=== PATIENT | male | born 1985 | race Two or more races ===

== ENCOUNTER 2025-03-21 09:00 | Day surgery (SDC) | payer BC ==
[~2025-03-21] VITALS: Ht 180.3 cm; Wt 74.8 kg
[~2025-03-21 09:00] MED LIST: NO HOME MEDS; ringers solution, lacted 1,000 ML IV SCH; simethicone 40mg/0.6ml oral drops 15ml PO ONE
[2025-03-21 09:23] VITALS: RESP 15; O2SAT 97
[2025-03-21 09:42] VITALS: BP 126/70; PULSE 62; RESP 15; TEMP 96.9; O2SAT 100
[2025-03-21] MEDS ORDERED: propofol inj 20 ML IV ONE ×4 (10:56)
[2025-03-21 11:09] VITALS: BP 111/67; PULSE 61; RESP 14; O2SAT 100
[2025-03-21 11:20] VITALS: BP 114/72; PULSE 59; RESP 16; O2SAT 100
[2025-03-21 11:30] VITALS: BP 115/64; PULSE 58; RESP 16; O2SAT 99
[2025-03-21 11:40] VITALS: BP 121/80; PULSE 62; RESP 12; O2SAT 99
== END 2025-03-21 11:59 | disposition home or self-care (01) ==
LOC: PRE-OP 09:00
PROVIDERS: ATTEND Internal Medicine Gastroenterology
DX: K92.1 Melena (principal); K64.8 Other hemorrhoids
CPT/HCPCS: 45378; J2704; J7120; Z7512; A4615; A4620